=== PATIENT | female | born 2000 | race Caucasian/White ===

== ENCOUNTER 2020-05-23 00:22 | Emergency (ER) | payer OTHER ==
[2020-05-23] MEDS ORDERED: Prochlorperazine 10 MG/2 ML VIAL ONE (00:46)
[2020-05-23] MEDS ORDERED: Sodium Chloride 0.9% 1,000 ML ONE (00:46)
[2020-05-23] MEDS ORDERED: Pantoprazole 40 MG VIAL ONE (00:48)
[2020-05-23] MEDS ORDERED: Ondansetron PF 4 MG/2 ML Vial ONE (01:23)
[2020-05-23 01:57] LABS: Bilirubin Negative (Negative); Blood, Urine Negative (Negative); Clarity Clear (Clear); Glucose, Urine (Dipstick) Negative (Negative); Ketone, Urine > or equal to 80 mg/dL (Negative); Leukocyte Negative (Negative); Nitrite Negative (Negative); Protein, Urine (Dipstick) Trace mg/dL (Neg-Trace); Specific Gravity, Urine 1.025 (1.002-1.036); Urobilinogen 0.2 mg/dL (Less than 2)
[2020-05-23 01:58] LABS: Pregnancy Test - Urine (BHCG) Negative (Negative); Pregu Control Background? CLEAR/WHITE (CLR/WHITE); Pregu Control Bar Appear? YES (CONTROL BAR); Specific Gravity 1.025 (1.002-1.036)
== END 2020-05-23 02:10 | disposition home or self-care (01) ==
LOC: MADERS 00:22
DX: R11.2 Nausea with vomiting, unspecified (principal); R10.13 Epigastric pain
CPT/HCPCS: 81003; 81025; 96374; 96375; C9113; J0780; J2405; J7050